=== PATIENT | female | born 1990 | race Two or more races ===

== ENCOUNTER 2019-08-07 04:50 | Emergency (ER) | payer SELFPAY ==
[~2019-08-07] VITALS: Ht 157.5 cm; Wt 73.0 kg
[2019-08-07] MEDS ORDERED: HYDROCODONE/ACETAMINOPHEN 5/325MG TABLET PO ONE (05:30)
[2019-08-07] MEDS ORDERED: METOCLOPRAMIDE HCL 10MG TABLET PO ONE (06:30)
[2019-08-07] MEDS ORDERED: IBUPROFEN 800MG TABLET PO ONE (06:30)
[2019-08-07 06:58] VITALS: BP 93/61
== END 2019-08-07 07:23 | disposition home or self-care (01) ==
LOC: ER 04:50
DX: R51 Headache (principal)
CPT/HCPCS: 70450; 81025; 99284; J8597